=== PATIENT | male | born 1980 | race American Indian/Alaskan Native ===

== ENCOUNTER 2019-01-03 12:38 | Emergency (ER) | payer SELFPAY ==
[2019-01-03 12:52] VITALS: BP 126/8
--- NOTE | 2019-01-03 12:53 | Event Note ---
ED Screening Note Date of service: 01/03/19 Time: 12:50 ED Screening Note: This is a 38 y.o. M. that presents to ER with migraine for 3 days. Admits to dizziness, nausea, blurry vision NSAIDs Current marijuana smoker. Occasional ETOH. PMH of migraines This initial assessment/diagnostic orders/clinical plan/treatment(s) is/are subject to change based on patients health status, clinical progression and re- assessment by fellow clinical providers in the ED. Further treatment and workup at subsequent clinical providers discretion. Patient/guardian urged not to elope from the ED as their condition may be serious if not clinically assessed and managed. Initial orders include:
[2019-01-03] MEDS ORDERED: ZOFRAN IV ONE (13:21)
[2019-01-03] MEDS ORDERED: NACL 0.9% 1000 ML 1,000 ML IV ONE (13:21)
[2019-01-03] MEDS ORDERED: TORADOL IV ONE (13:21)
[2019-01-03] MEDS ORDERED: NORCO 7.5/325 PO ONE (14:54)
--- NOTE | 2019-01-03 15:21 | Emergency Department Report ---
ED Headache HPI - General Chief Complaint: Headache Stated Complaint: MIGRAINE/STOMACH PAIN/DIZZINESS Time Seen by Provider: 01/03/19 12:50 - History of Present Illness Initial Comments: Patient is a 38-year-old male with past medical history migraines who presented with headache. Patient states that the headache is mostly frontal but is associated with light sensitivity blurry vision as well as nausea and vomiting. Patient vomited several times over the last 2 days. Patient denies any neck stiffness or throat cough cold or congestion this time. Headache is consistent with his history of migraines. Home Medications: Ambulatory Orders Ketorolac [Toradol] 10 mg PO Q6H PRN #12 tablet 01/03/19 Ondansetron [Zofran Odt] 4 mg PO Q8HR #10 tab.rapdis 01/03/19 traMADol [Ultram] 50 mg PO Q6HR PRN #12 tablet 01/03/19 ED Review of Systems ROS: Stated complaint: MIGRAINE/STOMACH PAIN/DIZZINESS Other details as noted in HPI Comment: All other systems reviewed and negative ED Past Medical Hx - Past Medical History Previous Medical History?: Yes Hx Headaches / Migraines: Yes - Surgical History Past Surgical History?: No - Social History Smoking Status: Never Smoker Substance Use Type: Alcohol, Marijuana - Medications Home Medications: Home Medications Medication Instructions Recorded Confirmed Last Taken Type Ketorolac [Toradol] 10 mg PO Q6H PRN #12 tablet 01/03/19 Unknown Rx Ondansetron [Zofran Odt] 4 mg PO Q8HR #10 tab.rapdis 01/03/19 Unknown Rx traMADol [Ultram] 50 mg PO Q6HR PRN #12 tablet 01/03/19 Unknown Rx ED Physical Exam - General Limitations: No Limitations General appearance: alert, in no apparent distress - Head Head exam: Present: atraumatic, normocephalic - Eye Eye exam: Present: normal appearance - ENT ENT exam: Present: mucous membranes moist - Neck Neck exam: Present: normal inspection - Respiratory Respiratory exam: Present: normal lung sounds bilaterally. Absent: respiratory distress, wheezes, rales, rhonchi - Cardiovascular Cardiovascular Exam: Present: regular rate, normal rhythm, normal heart sounds. Absent: systolic murmur, diastolic murmur, rubs, gallop - GI/Abdominal GI/Abdominal exam: Present: soft, normal bowel sounds. Absent: distended, tenderness, guarding, rebound - Rectal Rectal exam: Present: deferred - Extremities Exam Extremities exam: Present: normal inspection - Back Exam Back exam: Present: normal inspection - Neurological Exam Neurological exam: Present: alert, oriented X3 - Psychiatric Psychiatric exam: Present: normal affect, normal mood - Skin Skin exam: Present: warm, dry, intact, normal color. Absent: rash ED Course Vital Signs 01/03/19 01/03/19 12:51 14:06 Temperature 98.7 F Pulse Rate 72 Respiratory 18 18 Rate Blood Pressure 126/8 O2 Sat by Pulse 99 Oximetry ED Medical Decision Making - Medical Decision Making Patient was rehydrated and was given medications for symptomatic relief. Patient be discharged home in stable condition. Critical care attestation.: If time is entered above; I have spent that time in minutes in the direct care of this critically ill patient, excluding procedure time. ED Disposition Clinical Impression: Migraine with acute onset aura Qualifiers: Status migrainosus presence: without status migrainosus Intractability: not intractable Qualified Code(s): G43.109 - Migraine with aura, not intractable, without status migrainosus Disposition: - TO HOME OR SELFCARE Is pt being admited?: No Does the pt Need Aspirin: No Condition: Stable Instructions: Migraine Headache (ED) Referrals: MANNIE ROJAS MD [Primary Care Provider] - 3-5 Days Time of Disposition: 15:21
== END 2019-01-03 15:32 | disposition home or self-care (01) ==
LOC: ED 12:38
DX: G43.109 Migraine with aura, not intractable, without status migrainosus (principal); F12.10 Cannabis abuse, uncomplicated; Z79.899 Other long term (current) drug therapy
CPT/HCPCS: 96361; 96374; 96375; 99282; J1885; J2405; J7030

== ENCOUNTER 2019-01-17 22:46 | Emergency (ER) | payer SELFPAY ==
[2019-01-18] MEDS ORDERED: BENADRYL IV ONE (01:14)
[2019-01-18] MEDS ORDERED: REGLAN IV ONE (01:14)
[2019-01-18] MEDS ORDERED: NACL 0.9% 1000 ML 1,000 ML IV ONE (01:14)
[2019-01-18] MEDS ORDERED: DECADRON IV ONE (01:14)
[2019-01-18] MEDS ORDERED: TYLENOL PO ONE (01:14)
--- NOTE | 2019-01-18 02:03 | Cat Scan Report ---
CT head/brain wo con INDICATION / CLINICAL INFORMATION: PATIENT COMPLAINS OF HAVING MIGRAINE HEADACHES X 4 DAYS. TECHNIQUE: All CT scans at this location are performed using CT dose reduction for ALARA by means of automated e xposure control. COMPARISON: 05/04/2012. FINDINGS: The ventricular system is normal in size and configuration. No focal lesion or mass effect is seen. T here is no evidence of intracranial hemorrhage or major vessel occlusion. The visualized paranasal si nuses and mastoid air cells are clear. The calvarium is intact. IMPRESSION: No acute abnormality. Signer Name: Arpit Heredia MD Signed: 01/18/2019 1:58 AM Workstation Name: [id number]
--- NOTE | 2019-01-18 02:09 | Emergency Department Report ---
ED Headache HPI - General Chief Complaint: Headache Stated Complaint: SEVERE MIGRAINES Time Seen by Provider: 01/18/19 01:12 - History of Present Illness Initial Comments: Patient is a 38-year-old -[place] male who presents for right frontal headache history of same same location same intensity of 5/10 patient seen 1 week ago in ED for same states symptoms are not improving . Has not seen earlier neurology is no fevers no chills headache is sharp radiating to her right muslim and right eye with mild photophobia and nausea no vomiting been no fever no chills no sinus infection no throat or ear pain patient states has never had CT requesting same Timing/Duration: 1 week Quality: moderate, sharp Head Injury Location: frontal, temporal Recent Head Trauma: occasional headaches Associated Symptoms: facial pain. denies: confusion, fatigue, fever/chills, flushing, loss of consciousness, nausea/vomiting, nasal congestion, nasal drainage, numbness in legs/feet, rash, seizures, sinus infection, stiff neck, vision changes, weakness Allergies/Adverse Reactions: Allergies Penicillins Allergy (Verified 01/18/19 01:56) Anaphylaxis Home Medications: Ambulatory Orders Ketorolac [Toradol] 10 mg PO Q6H PRN #12 tablet 01/03/19 Ondansetron [Zofran Odt] 4 mg PO Q8HR #10 tab.rapdis 01/03/19 traMADol [Ultram] 50 mg PO Q6HR PRN #12 tablet 01/03/19 Acetaminophen [Acetaminophen TAB] 1,000 mg PO Q6HR PRN #30 tablet 01/18/19 Metoclopramide [Reglan] 10 mg PO Q6H PRN #30 tablet 01/18/19 diphenhydrAMINE [Benadryl CAP] 25 mg PO Q6HR PRN #30 capsule 01/18/19 ED Review of Systems ROS: Stated complaint: SEVERE MIGRAINES Other details as noted in HPI Constitutional: denies: chills, fever Eyes: denies: eye pain, eye discharge, vision change ENT: denies: ear pain, throat pain, congestion Respiratory: denies: cough, shortness of breath, wheezing Cardiovascular: denies: chest pain, palpitations Endocrine: no symptoms reported Gastrointestinal: denies: abdominal pain, nausea, vomiting, diarrhea Genitourinary: denies: urgency, dysuria Musculoskeletal: denies: back pain, joint swelling, arthralgia Skin: denies: rash, lesions Neurological: headache. denies: weakness, numbness, paresthesias, confusion, abnormal gait, vertigo Psychiatric: denies: anxiety, depression Hematological/Lymphatic: denies: easy bleeding, easy bruising ED Past Medical Hx - Past Medical History Previous Medical History?: Yes Hx Headaches / Migraines: Yes - Surgical History Past Surgical History?: No - Social History Smoking Status: Never Smoker Substance Use Type: None - Medications Home Medications: Home Medications Medication Instructions Recorded Confirmed Last Taken Type Ketorolac [Toradol] 10 mg PO Q6H PRN #12 tablet 01/03/19 Unknown Rx Ondansetron [Zofran Odt] 4 mg PO Q8HR #10 tab.rapdis 01/03/19 Unknown Rx traMADol [Ultram] 50 mg PO Q6HR PRN #12 tablet 01/03/19 Unknown Rx Acetaminophen [Acetaminophen TAB] 1,000 mg PO Q6HR PRN #30 tablet 01/18/19 Unknown Rx Metoclopramide [Reglan] 10 mg PO Q6H PRN #30 tablet 01/18/19 Unknown Rx diphenhydrAMINE [Benadryl CAP] 25 mg PO Q6HR PRN #30 capsule 01/18/19 Unknown Rx ED Physical Exam - General Limitations: No Limitations General appearance: alert, in no apparent distress - Head Head exam: Present: atraumatic, normocephalic, normal inspection - Eye Eye exam: Present: normal appearance, PERRL, EOMI. Absent: conjunctival injection, nystagmus Pupils: Present: normal accommodation - ENT ENT exam: Present: normal orophraynx, mucous membranes moist, TM's normal bilaterally, normal external ear exam - Neck Neck exam: Present: normal inspection, full ROM. Absent: tenderness, meningismus, lymphadenopathy, thyromegaly - Expanded Neck Exam Expanded Neck exam: Absent: midline deformity, anterior neck swelling, thyroid mass, carotid bruit, tracheal deviation - Respiratory Respiratory exam: Present: normal lung sounds bilaterally. Absent: respiratory distress, wheezes, stridor, chest wall tenderness - Cardiovascular Cardiovascular Exam: Present: regular rate, normal rhythm, normal heart sounds. Absent: systolic murmur, diastolic murmur, rubs, gallop - GI/Abdominal GI/Abdominal exam: Present: soft, normal bowel sounds. Absent: distended, tenderness, guarding, rebound, rigid, bruit, hernia - Rectal Rectal exam: Present: deferred - Extremities Exam Extremities exam: Present: normal inspection, full ROM, normal capillary refill. Absent: tenderness - Back Exam Back exam: Present: normal inspection, full ROM. Absent: tenderness, vertebral tenderness, rash noted - Neurological Exam Neurological exam: Present: alert, oriented X3, CN II-XII intact, normal gait, reflexes normal. Absent: motor sensory deficit - Expanded Neurological Exam Expanded Patient oriented to: Present: person, place, time Speech: Present: fluid speech Cranial nerves: EOM's Intact: Normal, Gag Reflex: Normal, Tongue Deviation: Normal, Nystagmus: Normal, Facial Sensation: Normal Motor strength exam: RUE: 5, LUE: 5, RLE: 5, LLE: 5 DTR: bicep (R): 2+, bicep (L): 2+, ankle (R): 2+, ankle (L): 2+ Best Eye Response ([place]): (4) open spontaneously Best Motor Response ([place]): (6) obeys commands Best Verbal Response ([place]): (5) oriented [place] Total: 15 - Psychiatric Psychiatric exam: Present: normal affect, normal mood - Skin Skin exam: Present: warm, dry, intact, normal color. Absent: rash ED Course Vital Signs 01/17/19 22:53 Temperature 98.5 F Pulse Rate 78 Respiratory 18 Rate Blood Pressure 119/86 O2 Sat by Pulse 98 Oximetry ED Medical Decision Making - Radiology Data Radiology results: report reviewed, image reviewed Ordering Physician: BRANDI URIOSTEGUI NP Date of Service: 01/18/19 Procedure(s): CT head/brain wo con Accession Number(s): [id number] cc: BRANDI URIOSTEGUI NP CT head/brain wo con INDICATION / CLINICAL INFORMATION: PATIENT COMPLAINS OF HAVING MIGRAINE HEADACHES X 4 DAYS. TECHNIQUE: All CT scans at this location are performed using CT dose reduction for ALARA by means of automated exposure control. COMPARISON: 05/04/2012. FINDINGS: The ventricular system is normal in size and configuration. No focal lesion or mass effect is seen. There is no evidence of intracranial hemorrhage or major vessel occlusion. The visualized paranasal sinuses and mastoid air cells are clear. The calvarium is intact. IMPRESSION: No acute abnormality. Signer Name: Aprit Heredia MD Signed: 01/18/2019 1:58 AM Workstation Name: [id number] Transcribed By: RT Dictated By: Arpit Heredia MD Electronically Authenticated By: Arpit Heredia MD Signed Date/Time: 01/18/19157 DD/ 4 TD/TT: - Medical Decision Making Headache improved CT scan normal no bleed no mass no abnormality plan DC'd home with prescription for Tylenol Reglan and Benadryl follow-up with neurology follow-up with PCP patient given referrals to same patient verbalized agreement and understanding the discharge plan patient DC'd home in stable condition at this time pain is reduced to 2/10 Critical care attestation.: If time is entered above; I have spent that time in minutes in the direct care of this critically ill patient, excluding procedure time. ED Disposition Clinical Impression: Headache Qualifiers: Headache type: unspecified Headache chronicity pattern: acute headache Intractability: not intractable Qualified Code(s): R51 - Headache Disposition: DC-01 TO HOME OR SELFCARE Is pt being admited?: No Does the pt Need Aspirin: No Condition: Stable Instructions: Acute Headache (ED) Prescriptions: Acetaminophen [Acetaminophen TAB] 1,000 mg PO Q6HR PRN #30 tablet PRN Reason: pain diphenhydrAMINE [Benadryl CAP] 25 mg PO Q6HR PRN #30 capsule PRN Reason: Headache Metoclopramide [Reglan] 10 mg PO Q6H PRN #30 tablet PRN Reason: Headache Referrals: [facility] NITZA [Primary Care Provider] - 3-5 Days LUIS ANGEL FONG MD [Referring] - 3-5 Days Forms: Work/School Release Form(ED) Time of Disposition: 02:43
[2019-01-18 03:57] VITALS: BP 121/94
== END 2019-01-18 04:00 | disposition home or self-care (01) ==
LOC: ED 22:46
DX: R51 Headache (principal); Z88.0 Allergy status to penicillin; Z79.899 Other long term (current) drug therapy
CPT/HCPCS: 70450; 96374; 96375; 99283; J1100; J1200; J2765; J7030